=== PATIENT | female | born 1950 | race African-American/Black ===

== ENCOUNTER 2021-10-21 18:37 | Emergency (ER) | payer BC, OTHER ==
[~2021-10-21] VITALS: Ht 157.5 cm; Wt 77.0 kg
[2021-10-21] MEDS ORDERED: ACETAMINOPHEN 325MG TABLET PO ONE (19:15)
[2021-10-21] MEDS ORDERED: TOPUD PO (20:36)
[2021-10-21 21:33] VITALS: BP 135/84
== END 2021-10-21 21:00 | disposition home or self-care (01) ==
LOC: ER 18:37
DX: M54.2 Cervicalgia (principal); R51.9 Headache, unspecified; E11.22 Type 2 diabetes mellitus with diabetic chronic kidney disease; I13.10 Hypertensive heart and chronic kidney disease without heart failure, with stage 1 through stage 4 chronic kidney disease, or unspecified chronic kidney disease; N18.9 Chronic kidney disease, unspecified; Z88.0 Allergy status to penicillin; V43.52XA Car driver injured in collision with other type car in traffic accident, initial encounter; Y93.89 Activity, other specified; Y92.488 Other paved roadways as the place of occurrence of the external cause
CPT/HCPCS: 99284